=== PATIENT | male | born 1955 | race Caucasian/White ===

== ENCOUNTER 2024-09-28 07:05 | Day surgery (SDC) | payer OTHER ==
[2024-09-26 13:14] VITALS: BP 148/80; PULSE 63; RESP 18; TEMP 97.4
[2024-09-26 13:23] LABS: BASOPHILS # (AUTO) 0.02 K/uL (0.00-0.20); BASOPHILS % (AUTO) 0.4 % (0.0-5.0); EOSINOPHILS # (AUTO) 0.13 K/uL (0.00-0.70); EOSINOPHILS % (AUTO) 2.6 % (0.0-8.0); HEMATOCRIT 34.9 % (42-54); IMMATURE GRANULOCYTE ABSOLUTE 0.03 K/uL (0-1); LYMPHOCYTES # (AUTO) 1.1 K/uL (1.0-4.8); LYMPHOCYTES % (AUTO) 22.1 % (21.0-51.0); MEAN CORPUSCULAR HEMOGLOBIN 31.7 pg (27.0-33.0); MEAN CORPUSCULAR HGB CONC 34.4 g/dL (32.0-36.0); MEAN CORPUSCULAR VOLUME 92.3 fL (79-99); MONOCYTES # (AUTO) 0.5 K/uL (0.1-1.0); MONOCYTES % (AUTO) 10.4 % (3.0-13.0); NEUTROPHILS # (AUTO) 3.2 K/uL (1.8-7.7); NEUTROPHILS % (AUTO) 63.9 % (40.0-77.0); PLATELET COUNT (AUTO) 193 K/uL (130-400); RED BLOOD CELL COUNT(AUTO) 3.78 MIL/uL (4.50-6.20); RED CELL DISTRIBUTION WIDTH 12.4 % (11.0-15.5)
[2024-09-26 13:34] LABS: CREATININE 1.1 mg/dL (0.5-1.3); INR 0.97 (0.85-1.15); POTASSIUM 4.1 mmol/L (3.5-5.1); PROTHROMBIN TIME 10.9 SEC (9.6-11.6)
[2024-09-26 13:35] LABS: PARTIAL THROMBOPLASTIN TIME 32.9 SEC (26.3-35.5)
[2024-09-26 13:36] LABS: ADD UA MICROSCOPIC NO; APPEARANCE,URINE CLEAR (CLEAR); BILIRUBIN,URINE NEGATIVE (NEGATIVE); COLOR,URINE LIGHT-YELLOW (YELLOW); GLUCOSE, URINE (UA) NEGATIVE (NEGATIVE); KETONES,URINE NEGATIVE (NEGATIVE); LEUKOCYTE ESTERASE ,URINE NEGATIVE Leu/uL (NEGATIVE); NITRATE,URINE NEGATIVE (NEGATIVE); OCCULT BLOOD,URINE NEGATIVE (NEGATIVE); PH,URINE 5.5 (5.0-8.0); PROTEIN,URINE NEGATIVE (NEGATIVE); UROBILINOGEN,URINE 0.2 mg/dL (0.2-1.0)
--- NOTE | 2024-09-26 13:43 | EKG ---
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
[2024-09-26 13:52] LABS: B-TYPE NATRIURETIC PEPTIDE 33 pg/mL (0-100)
--- NOTE | 2024-09-26 14:35 | HMCIMG ---
CHEST 1VW REASON: PREOP COMPARISON: None. FINDINGS: Single view of the chest was obtained. Lungs are clear. Heart size is normal. There is no pulmonary vascular congestion. Mediastinum and bony thorax appear unremarkable. IMPRESSION: 1. Normal single view chest x-ray.
--- NOTE | 2024-09-27 11:51 | NUR ---
REPORT REPORTED BMP TO DR HERNANDEZ. OK TO PROCEED
[~2024-09-28] VITALS: Ht 177.8 cm; Wt 108.8 kg
[~2024-09-28 07:05] MED LIST: AMIO200T68 PO; APIX5TAB PO; ATOR40TA71 PO; NITR0.4T50 SL; OMEP40CA21 PO; TAMS-1 PO; VIBE75TA PO
[2024-09-28 07:20] VITALS: BP 152/80; PULSE 70; RESP 19; TEMP 97.3
[2024-09-28] MEDS ORDERED: 0.9%NACL 1000ML 1,000 ML IV SCH ×2 (08:00→11:00)
[2024-09-28] MEDS ORDERED: HEParin 10,000 UNIT/10ML (1,000 UNIT/ML) VIAL ONE (08:58)
[2024-09-28] MEDS ORDERED: IOHEXOL 350 MG/ML 100ML INFUS..BTL IV ONE (08:58)
[2024-09-28] MEDS ORDERED: niCARDIpine 25MG INJ IV ONE (08:58)
[2024-09-28] MEDS ORDERED: LIDOCAINE HCL 400MG/20ML VIAL ONE (08:58)
[2024-09-28] MEDS ORDERED: SODIUM BICARB 50MEQ 50ML VIAL 50 ML ONE (08:58)
[2024-09-28] MEDS ORDERED: HEParin-NS 1,000 UNIT/500 ML 1,000 ML IV ONE (08:58)
[2024-09-28] MEDS ORDERED: NITROGLYCERIN 50MG VIAL ONE (08:59)
[2024-09-28] MEDS ORDERED: IOHEXOL-350 50ML VIAL IV ONE (09:46)
[2024-09-28] MEDS ORDERED: MIDAZOLAM HCL 1 MG/ML 2ML VIAL ONE (09:54)
[2024-09-28] MEDS ORDERED: FENTanyl CITRate PF 50 MCG/1 ML 2ML VIAL ONE (09:54)
--- NOTE | 2024-09-28 11:01 | PRN ---
Diagnostic Coronary Angiogram From Radial Approach Indication: Technique: The patient was brought to the laborer salvage in a fasting state and sterile preparation was made in usual fashion. The patient had been explained risks and benefits of the procedure and accepted prior to this procedure. Patient was sedated with 1 mg Versed and 50 mcg fentanyl. Under local anesthes ia with 1% lidocaine the right radial artery was entered percutaneously and a 5/6 Guyanese Terumo radial sheath was advanced into the vessel. A cocktail of 5000 units aqueous heparin, 200 mcg Cardene and 200 mcg nitroglycerin was administered via radial arterial injection. A 6 Guyanese TIGG catheter was advanced to the aortic root over a guidewire and the left coronary was cannulated for selective left coronary arteriograms. An exchange was made for a 6 Guyanese 3.5 cm right Kayla which was used to engage the right coronary for right coronary arteriogram. We then exchanged for a pigtail using a guidewire and the left ventricle was cannulated. Left ventricular cineangiography was performed in GALLO projection and then a pullback recording was obtained. The c atheter was removed over a guidewire. At the conclusion of the procedure arterial hemostasis was obtained by use of a Vasc band with excellent hemostasis and no complications.. The patient was transferred from the laborer salvage in stable condition. Results: A. Hemodynamics: LVEDP was 18 before angiography in 22 after. LV systolic pressure was 165 with aortic root pressure 166/77, mean 112. B. Ventriculography: Left ventricular cineangiography demonstrates normal left ventricular size and geometry with symmetric wall motion and 75% ejection fraction. Mitral valve is competent. C. Coronary arteriography: This is a right-dominant system. Damping occurs whenever the right coronary is engaged, due to an 80% ostial stenosis. Just beyond the conus branch is an additional 90% stenosis, then an additional 90% stenosis superimposed on diffuse 50-70% plaque in the mid vertical portion of the vessel. The right coronary supplies a marginal descending that courses across the RV to the apical inferior groove, as well as a posterior descending that supplies the basal 70% of the inferior groove and a small posterior branch that in turn supplies the AV abhay artery. The left main is notable for 30% plaque in its distal portion but this is not obstructive. The left anterior descending is notable for a napkin ring lesion between the 1st and 2nd diagonals which appears to narrow the vessel by about 80%. The circumflex supplies two tiny obtuse marginals, then a medium-size 3rd obtuse marginal, then a large inferolateral branch that approaches the apex. This branches the largest branch in the circumflex system and it is notable for a radiolucent eccentric 90% ostial stenosis which appears to be an unstable plaque. Conclusions: Three-vessel coronary disease. Preserved ventricular function. Recommendation: Given the complexity of the right coronary anatomy and the presence of three-ve ssel disease, I think the patient would be best served by an internal mammary graft to LAD with vein grafts to the obtuse marginal and right coronary. TRENT HERNANDEZ MD Sep 28, 2024 11:01
[2024-09-28] MEDS ORDERED: METO-408 PO (11:07)
[2024-09-28] MEDS ORDERED: ASPI-1443 PO (11:08)
[2024-09-28 11:15] VITALS: BP 150/113; PULSE 57; RESP 14
[2024-09-28 11:30] VITALS: BP 157/102; PULSE 62; RESP 14
[2024-09-28 11:45] VITALS: BP 177/89; PULSE 62; RESP 14
[2024-09-28 12:00] VITALS: BP 169/84; PULSE 69; RESP 14
--- NOTE | 2024-09-28 12:55 | NUR ---
VASBAND REMOVED SITE ASYMPTOMATIC, DRESSED WITH STERILE GAUZE TEGADERM WRAPPED WITH COBAND
--- NOTE | 2024-09-28 13:59 | PN ---
No bleeding, no hematoma, no complications of coronary arteriography. Patient desires to return to Dr. 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 He has an appointment for October 02 at 8:00 a.m. which I arranged, and my office is sending a referral in the hospital is preparing a packet of records and coronary angiogram images for him to take. Vitals/Labs Vital Signs Date Time Temp Pulse Resp B/P (MAP) Pulse Ox O2 Delivery O2 Flow Rate FiO2 09/28/24 12:00 69 14 169/84 99 Room Air 21 09/28/24 07:20 97.3 Medications Current Medications Sodium Chloride 1,000 ml @ 0 mls/hr Q0M IV; Start 09/28/24 at 08:00; Stop at 07:59 Lidocaine HCl 20 ml STK-MED ONCE .ROUTE; Start 09/28/24 at 08:58; Stop 09/28/24 at 08:58; Status DC Sodium Bicarbonate 50 ml @ As Directed STK-MED ONCE .ROUTE; Start 09/28/24 at 08:58; Stop 09/28/24 at 08:58; Status DC Nicardipine HCl 25 mg STK-MED ONCE IV; Start 09/28/24 at 08:58; Stop 09/28/24 at 08:58; Status DC Iohexol 35,000 mg STK-MED ONCE IV; Start 09/28/24 at 08:58; Stop 09/28/24 at 08:59; Status DC Heparin Sodium (Porcine) 10,000 unit STK-MED ONCE .ROUTE; Start 09/28/24 at 08:58; Stop 09/28/24 at 08:59; Status DC Heparin Sodium/ Sodium Chloride 1,000 ml @ As Directed STK-MED ONCE IV; Start 09/28/24 at 08:58; Stop 09/28/24 at 08:59; Status DC Nitroglycerin 50 mg STK-MED ONCE .ROUTE; Start 09/28/24 at 08:59; Stop 09/28/24 at 08:59; Status DC Iohexol 50 ml STK-MED ONCE IV; Start 09/28/24 at 09:46; Stop 09/28/24 at 09:47; Status DC Fentanyl Citrate 100 mcg STK-MED ONCE .ROUTE; Start 09/28/24 at 09:54; Stop 09/28/24 at 09:54; Status DC Midazolam HCl 2 mg STK-MED ONCE .ROUTE; Start 09/28/24 at 09:54; Stop 09/28/24 at 09:54; Status DC Sodium Chloride 1,000 ml @ 150 mls/hr Q6H40M IV; Start 09/28/24 at 11:00; Stop 09/28/24 at 14:59 TRENT HERNANDEZ MD Sep 28, 2024 13:59
[2024-09-28 14:33] VITALS: BP 162/72; PULSE 71; RESP 18; TEMP 98
== END 2024-09-28 15:00 | disposition home or self-care (01) ==
LOC: DAH 07:05
PROVIDERS: ATTEND Internal Medicine Cardiovascular Disease
DX: I25.118 Atherosclerotic heart disease of native coronary artery with other forms of angina pectoris (principal); I25.83 Coronary atherosclerosis due to lipid rich plaque; R07.9 Chest pain, unspecified; R06.09 Other forms of dyspnea; E78.2 Mixed hyperlipidemia; I71.40 Abdominal aortic aneurysm, without rupture, unspecified; G47.33 Obstructive sleep apnea (adult) (pediatric); N40.0 Benign prostatic hyperplasia without lower urinary tract symptoms; J45.990 Exercise induced bronchospasm; K57.90 Diverticulosis of intestine, part unspecified, without perforation or abscess without bleeding; M17.9 Osteoarthritis of knee, unspecified; M16.9 Osteoarthritis of hip, unspecified; F10.90 Alcohol use, unspecified, uncomplicated; E66.9 Obesity, unspecified; E55.9 Vitamin D deficiency, unspecified; Z82.3 Family history of stroke; Z79.82 Long term (current) use of aspirin; Z82.49 Family history of ischemic heart disease and other diseases of the circulatory system; Z68.35 Body mass index [BMI] 35.0-35.9, adult; Z88.8 Allergy status to other drugs, medicaments and biological substances; Z79.899 Other long term (current) drug therapy; Z98.890 Other specified postprocedural states; Z90.49 Acquired absence of other specified parts of digestive tract; Z86.2 Personal history of diseases of the blood and blood-forming organs and certain disorders involving the immune mechanism
CPT/HCPCS: 80048; 83880; 85025; 85610; 85730; 81003; 36415; 71045; 93005; 93458; Q9965; C1769 ×2; C1894; A4649; J3010; J3490 ×4; J1644 ×2; J2250; Q9967 ×2; A4215; A4222; A4221; A4663; A4216; A4606; A4223 ×3; 96360; 96361; 99156; 99157

== ENCOUNTER → 2024-11-02 | Outpatient (CLI) | payer OTHER ==
[~2024-11-02] MED LIST changes: +ASPI-1443 PO; +METO-408 PO
--- NOTE | 2024-11-06 21:32 | HMCSR ---
APPROVED REPORT EXAM: Two-dimensional and M-mode echocardiogram with Doppler and color Doppler. INDICATION ICD: Other forms of dyspnea R06.09 2D Dimensions RVDd4.3 cmLVEF(%)56.9 (>50%)LVED Vol(simp.)116.4 mL IVSd0.9 (0.7-1.1cm)FS(%)30 %LVES Vol(simp.)56.0 mL LVDd5.2 (3.8-5.6cm)LA (2D)4.6 (1.6-4.0cm)LVEF(%, simp.)52 % PWd1.3 (0.7-1.1cm)Ao Root(2D)3.7 (2.0-3.7cm)LA ESV INDEX (BP)28.24 mL/m2 LVDs3.6 (2.5-4.0cm)LVOT diam2.5 (1.8-2.4cm) IVC diam1.5 cm M-Mode Dimensions EPSS0.6 cm LA (MM)4.7 (1.6-4.0cm) Ao Root(MM)3.7 (2.0-3.7cm) Aortic Valve AoV Vmax1.5 m/Parris Peak GR9.5 mmHgLVOT Vmax1.0 m/s AoV VTI0.3 mAo Mean GR5.4 mmHgLVOT VTI0.21 m ANUM (VMAX)3.1 cm2AVA (VTI) 3.1 cm2 Mitral Valve MV E Vmax61.2 cm/sDECEL Kjad391 ms MV A Vmax81.8 cm/sP 1/2 T90 ms E/A ratio0.7MVA (PHT)2.4 cm2 TDI E/E' Ffubpo75.2E/E' Lateral6.1 Medial E' Peak V6.00 cm/sLateral E' Peak V10.00 cm/s Left Ventricle The left ventricle is normal size. There is normal LV segmental wall motion. There is normal left steve tricular wall thickness. LVEF is 50-55%. The left ventricular diastolic function is normal. Right Ventricle The right ventricle is normal size. The right ventricular systolic function is normal. Atria The left atrium size is normal. The right atrium size is normal. Aortic Valve The aortic valve is normal in structure. No aortic regurgitation is present. There is no aortic valvu lar stenosis. Mitral Valve The mitral valve is normal in structure. There is no evidence of significant mitral regurgitation. Th ere is no mitral valve stenosis. Tricuspid Valve The tricuspid valve is normal in structure. There is no tricuspid valve regurgitation noted. Pulmonic Valve The pulmonary valve is normal in structure. There is no pulmonic valvular regurgitation. Great Vessels The aortic root is normal in size. The IVC is normal in size and collapses >50% with inspiration. Pericardium There is no pericardial effusion. Conclusion LVEF is 50-55%. The left ventricular diastolic function is normal.
== END | disposition home or self-care (01) ==
LOC: RAH 13:53
PROVIDERS: ATTEND Internal Medicine Cardiovascular Disease
DX: R06.09 Other forms of dyspnea (principal); I95.9 Hypotension, unspecified
CPT/HCPCS: 93306

== ENCOUNTER 2025-03-23 17:24 | Emergency (ER) | payer OTHER ==
[~2025-03-23] VITALS: Ht 175.3 cm; Wt 104.3 kg
[~2025-03-23 17:24] MED LIST changes: -AMIO200T68 PO; +AMIO200T73 PO; -APIX5TAB PO; +ATOR-2 PO; -ATOR40TA71 PO; +CLOP75TA32 PO; +DABI150C PO; +FAMO40TA7 PO; +FERR325T29 PO; -METO-408 PO; -NITR0.4T50 SL; -OMEP40CA21 PO; -TAMS-1 PO; +TAMS-55 PO
--- NOTE | 2025-03-23 17:42 | ERN ---
ED Note History of Present Illness Stated Complaint: CP Chief Complaint: Chest Pain Time Seen by MD: 17:33 Dictation: PATIENT IS A 70-YEAR-OLD MALE COMING IN TODAY WITH COMPLAINTS OF GENERALIZED BODY WEAKNESS NOT FEELING GOOD AND HAVING A LOW-GRADE TEMP. HE ALSO STATES HE HAS A FRONTAL HEADACHE AND HAS CHANGES IN URINATION. STATES HE IS CONCERNED BECAUSE HE HAD A TRIPLE BYPASS IN [facility] [place] THIS YEAR. RECENTLY SAW DR. HERNANDEZ, HAD A HEART CATHETERIZATION DONE AND WAS TOLD THAT TWO OF THE BYPASSES ALREADY SIGNIFICANTLY STENOSED. HE ALSO STATES HE HAS A URETEROSCOPY DONE YESTERDAY BY DR. ROONEY IN [facility]. NO NAUSEA VOMITING. NO CHEST PAIN AT THIS TIME Allergies: Coded Allergies: ciprofloxacin (Unverified Allergy, Unknown, 09/27/24) Home Meds Active Scripts Dabigatran Etexilate Mesylate (Pradaxa) 150 Mg Capsule, 1 CAP PO BID for 90 Days, #180 CAP 0 Refills Prov:TRENT HERNANDEZ MD 01/25/25 Famotidine (Famotidine) 40 Mg Tablet, 40 MG PO DAILY, #90 TAB Prov:TRENT HERNANDEZ MD 01/25/25 Aspirin (Aspirin EC) 81 Mg Tablet., 81 MG PO AM, #90 TAB Prov:TRENT HERNANDEZ MD 09/28/24 Reported Medications Atorvastatin Calcium (Atorvastatin Calcium) 80 Mg Tablet, 1 TAB PO HS 01/23/25 Clopidogrel Bisulfate (Clopidogrel) 75 Mg Tablet, 1 TAB PO DAILY 01/23/25 Ferrous Sulfate (Ferosul) 325 Mg (65 Mg Iron) Tablet, 1 TAB PO DAILY for anemia 01/23/25 Vibegron (Gemtesa) 75 Mg Tablet, 75 MG PO HS, TAB 09/26/24 Tamsulosin HCl (Flomax) 0.4 Mg Cap.er.24h, 0.4 MG PO BID, CAPSULE. 09/26/24 Amiodarone HCl (Amiodarone HCl) 200 Mg Tablet, 200 MG PO DAILY, TAB 09/26/24 Past Medical History Past Medical History: CAD, Hypertension Surgical History: CABG RN Note Reviewed/Agreed w/PFSH: Yes Review of System Dictation CONSTITUTIONAL: NEGATIVE EXCEPT FOR HPI FEVER CHILLS HEAD/FACE: NEGATIVE EXCEPT FOR HPI EENT: NEGATIVE EXCEPT FOR HPI RESPIRATORY: NEGATIVE EXCEPT FOR HPI SOB GASTROINTESTINAL/ABDOMINAL: NEGATIVE EXCEPT FOR HPI GENITOURINARY: NEGATIVE EXCEPT FOR HPI MUSCULOSKELETAL: NEGATIVE EXCEPT FOR HPI INTEGUMENTARY: NEGATIVE EXCEPT FOR HPI NEUROLOGICAL/PSYCH: NEGATIVE EXCEPT FOR HPI FRONTAL HEADACHE HEMATOLOGIC/LYMPHATIC: NEGATIVE EXCEPT FOR HPI ALL SYSTEMS NEGATIVE, EXCEPT NOTED ABOVE. 13 POINT REVIEW OF SYSTEMS ASSESSED AND ALL NEGATIVE EXCEPT FOR ABOVE. Initial Vital Sign VS Vital Signs Date Time Temp Pulse Resp B/P (MAP) Pulse Ox O2 Delivery O2 Flow Rate FiO2 03/23/25 17:31 101.1 77 20 193/88 98 Room Air 0 03/23/25 17:37 21 Physical Exam Dictation VITAL SIGNS REVIEWED GENERAL APPEARANCE: ALERT, ORIENTED X 3, MILD ACUTE DISTRESS, WELL DEVELOPED, NOURISHED. HEAD AND FACE: NON-TRAUMATIC. EYES: PERRL, PINK CONJUNCTIVAS, EYELID NO TRAUMA, ANTERIOR CHAMBER WITH ARCUS SENILIS. EARS: PINNAS INTACT AND NO SIGNS OF TRAUMA OR ERYTHEMA EAR CANALS CLEAR AND NO DISCHARGE TM NO ERYTHEMA NOSE: NO DISCHARGE, NO BLEEDING. OROPHARYNX: MOUTH NORMAL, TONGUE PINK, PHARYNX CLEAR,NO ERYTHEMA, TONSILS NO EXUDATES, NO ABSCESSES NOTED, MUCOUS MEMBRANE MOIST NECK: SUPPLE, NON-TENDER, NO THYROMEGALY, NO MASSES, NO JVD, NO BRUITS BREAST:DEFERRED CHEST:NO TENDERNESS, NO CREPITUS, NO PARADOXICAL MOVEMENT, NO RETRACTIONS LUNGS:CLEAR, WELL-VENTILATED, SYMMETRIC, NO RALES, NO WHEEZING, NO RHONCHI, NO STRIDOR, GOOD BREATH SOUNDS BILATERALLY HEART: REGULAR RATE, REGULAR RHYTHM, NO MURMUR, NO GALLOPS VASCULAR: NO PERIPHERAL EDEMA, ABDOMEN: SOFT, POSITIVE BOWEL SOUNDS, NONDISTENDED, NO GUARDING, NONTENDER, NO REBOUND, NO MASSES NO HEPATOMEGALY, NO SPLENOMEGALY, NO ZAVALA'S SIGN, NO HERNIAS. RECTAL: DEFERRED GENITAL: DEFERRED NEUROLOGICAL: NORMAL SPEECH, MOTOR FUNCTION INTACT, SENSORY FUNCTION INTACT MUSCULOSKELETAL: NECK NONTENDER, FULL RANGE OF MOTION, BACK NONTENDER, FULL RANGE OF MOTION, EXTREMITIES: NONTENDER, FULL RANGE OF MOTION SKIN: COLOR PINK, DRY, NO TURGOR, NO RASH, NO LACERATIONS, NO ABRASIONS, NO CONTUSIONS. LYMPHATIC: DEFERRED Results (Laboratory/Radiology) Laboratory/Radiology Laboratory Tests Test 03/23/25 17:43 03/23/25 17:46 03/23/25 18:34 Urine Color LIGHT-YELLOW (YELLOW) Urine Appearance CLOUDY (CLEAR) H Urine pH 7.0 (5.0-8.0) Urine Specific [place] 1.015 (1.001-1.031) Urine Protein NEGATIVE mg/dL (NEGATIVE) Urine Glucose (UA) NEGATIVE mg/dL (NEGATIVE) Urine Ketones NEGATIVE mg/dL (NEGATIVE) Urine Occult Blood SMALL (NEGATIVE) H Urine Nitrate 2+ (NEGATIVE) H Urine Bilirubin NEGATIVE mg/dL (NEGATIVE) Urine Urobilinogen 0.2 mg/dL (0.2-1.0) Urine Leukocyte Esterase 500 Corey/uL (NEGATIVE) H Urine RBC 11-25 /HPF (0-1) H Urine WBC 51-100 /HPF (0-1) H Urine WBC Clumps (Auto) FEW /HPF (0-1) Urine Squamous Epithelial Cells RARE /HPF (0-2) Urine Bacteria RARE /HPF (None Seen) White Blood Count 11.1 K/uL (4.8-10.8) H Red Blood Count 4.09 MIL/uL (4.50-6.20) L Hemoglobin 13.1 g/dL (14.0-18.0) L Hematocrit 38.2 % (42-54) L Mean Corpuscular Volume 93.4 fL (79-99) Mean Corpuscular Hemoglobin 32.0 pg (27.0-33.0) Mean Corpuscular Hemoglobin Concent 34.3 g/dL (32.0-36.0) Red Cell Distribution Width 13.5 % (11.0-15.5) Platelet Count 223 K/uL (130-400) Mean Platelet Volume 9.2 fL (7.5-10.5) Immature Granulocyte % (Auto) 0.5 % (0-1) Neutrophils (%) (Auto) 90.4 % (40.0-77.0) H Lymphocytes (%) (Auto) 3.3 % (21.0-51.0) L Monocytes (%) (Auto) 5.0 % (3.0-13.0) Eosinophils (%) (Auto) 0.7 % (0.0-8.0) Basophils (%) (Auto) 0.1 % (0.0-5.0) Neutrophils # (Auto) 10.0 K/uL (1.8-7.7) H Lymphocytes # (Auto) 0.4 K/uL (1.0-4.8) L Monocytes # (Auto) 0.6 K/uL (0.1-1.0) Eosinophils # (Auto) 0.08 K/uL (0.00-0.70) Basophils # (Auto) 0.01 K/uL (0.00-0.20) Absolute Immature Granulocyte (auto 0.05 K/uL (0-1) Nucleated Red Blood Cells 0.0 % (0.0-0.19) White Cell Morphology Comment See comments Sodium Level 132 mmol/L (136-145) L Potassium Level 4.2 mmol/L (3.5-5.1) Chloride Level 97 mmol/L (101-111) L Carbon Dioxide Level 30 mmol/L (21-32) Blood Urea Nitrogen 16 mg/dL (7-18) Creatinine 1.2 mg/dL (0.5-1.3) Glomerular Filtration Rate Calc 65 mL/min (>90) Random Glucose 99 mg/dL (70-105) Total Calcium 9.2 mg/dL (8.5-10.1) Troponin I High Sensitivity 41 ng/L (4-75) B-Type Natriuretic Peptide 83 pg/mL (0-100) Lactic Acid Level 1.9 mmol/L (0.8-2.5) Labs Reviewed?: Yes EKG Comment: EKG SINUS RHYTHM/HEART RATE 86/AXIS NORMAL/NONSPECIFIC CHANGES LEADS TWO AND THREE ED Course ED Course Orders Procedure Category Date Status Time Covid19 (Sars Antigen LAB 03/23/25 In Process Rapid) 17:34 Influenza Type A & B, LAB 03/23/25 In Process Rapid 17:34 Rapid (Group A Strep) LAB 03/23/25 In Process 17:34 Acetaminophen 500mg PHA 03/23/25 In Process Tab (Tylenol 500mg T 18:00 Cbc With Differential LAB 03/23/25 Complete 17:34 Troponin I High LAB 03/23/25 Complete Sensitivity 17:34 Urinalysis Profile LAB 03/23/25 Complete 17:34 12 Lead Ekg Tracing- EKG 03/23/25 Logged Technical 17:34 0.9%Nacl 1000ml (Ns PHA 03/23/25 In Process 1000ml) 18:00 Chest 1vw RAD 03/23/25 Resulted 17:34 Basic Metabolic Panel LAB 03/23/25 Complete 17:34 B-Type Natriuretic LAB 03/23/25 Complete Peptide 17:39 Culture Urine PETER 03/23/25 In Process 18:10 Lactic Acid LAB 03/23/25 Complete 18:27 Blood Cult PETER 03/23/25 In Process 18:27 Ceftriaxone 2gm Vial PHA 03/23/25 In Process (Rocephin 2gm Inj) 18:27 Ceftriaxone 2gm Vial PHA 03/23/25 In Process (Rocephin 2gm Inj) 19:11 Phenazopyridine Hcl PHA 03/23/25 In Process 200 Mg Tab (Pyridium 19:30 Current Medications Medications (Trade) Dose Ordered Sig/Iván Route PRN Reason Start Time Stop Time Status Last Admin Dose Admin Acetaminophen (TYLenol 500MG TAB) 1,000 mg ONCE PO 03/23/25 18:00 03/23/25 22:00 03/23/25 18:30 Ceftriaxone Sodium (Rocephin 2gm Inj) 2 gm ONCE IVPB 03/23/25 18:27 03/23/25 22:30 Ceftriaxone Sodium (Rocephin 2gm Inj) 2 gm ONCE IVPB 03/23/25 19:11 03/23/25 23:59 Phenazopyridine HCl (PYRIdium HCL 200 MG TAB) 200 mg ONCE PO 03/23/25 19:30 03/23/25 23:59 Sodium Chloride 1,000 ml @ 0 mls/hr ONCE IV 03/23/25 18:00 03/24/25 17:59 03/23/25 18:30 Vital Signs Date Time Temp Pulse Resp B/P (MAP) Pulse Ox O2 Delivery O2 Flow Rate FiO2 03/23/25 18:35 102.4 78 18 169/79 Room Air* 0 21 03/23/25 18:30 102.4 03/23/25 17:37 100.9 77 20 193/88 98 Room Air* 0 21 03/23/25 17:31 101.1 77 20 193/88 98 Room Air 0 1954/spoke with patient at length regarding clinical findings. He does not want to be admitted to the hospital states he wants to be treated for acute cystitis with hematuria Agreed he would return if he would come back however he would just seen his urologist yesterday. I we will discharge patient home after Rocephin 2 g with Augmentin and Pyridium Increase his fluids he and his agreed at bedside HEART Score Response (Comments) Value EKG: Repolarization changes 1 Age: > 65yrs (+2) 2 Risk Factors: 3+ risk factors (+2) 2 Initial Troponin: Normal limit (0) 0 Total 5 Medical Decision Making MDM MDM: Differential diagnosis: ACS/AMI/electrolyte imbalance/dehydration/UTI/SARs COVID/pneumonia/bronchitis Rationale: Tests considered and ordered secondary to shared decision making include: EKG/labs/radiology Previous outside records reviewed: Old ER visits. Risk of complication and/or morbidity or mortality of patient management: None Medications-Per medication reconciliation Need for hospitalization: Patient does not meet criteria for hospitalization. Patient refused admission at this time wishes to be treated at home with the Augmentin and Pyridium after Rocephin Need for emergency major/minor surgery: No There are no social concerns with this patient. Prescription drug management Augmentin/Pyridium Prescriptions will include symptomatic care Patient's prior external medical records from other ER visits were reviewed by me as indicated. Prior testing and results from previous visits were reviewed. Prior tests were taken into account with medical decision making and resource utilization, independent historian/historians were used to obtain complete m edical history. I independently interpreted the test that were performed, results were reviewed by me and considered findings on radiology if ordered. Medical management and examination interpretation discussions were had by me with other qualified healthcare professionals as indicated for the patient's care. DX & DISP Disposition: Discharge Departure Impression: Primary Impression: Acute cystitis with hematuria Additional Impressions: Fever, Hyponatremia, Dehydration Condition: Stable Scripts Phenazopyridine HCl (Pyridium) 200 Mg Tablet 200 MG PO TID for painful urination, #10 TAB 0 Refills Prov: RENETTA COLEMAN COMPOSITE BOAT BUILDER 03/23/25 Amoxicillin/Potassium Clav (Amox Tr-K Clv 875-125 mg Tab) 875 Mg-125 Mg Tablet 1 EACH PO BID for 7 Days, #14 TAB 0 Refills Prov: RENETTA COLEMAN [employer]POS[employer] BOAT BUILDER 03/23/25 Additional Instructions: Follow-up with primary care provider in 1 to 2 days. Take medications as directed here in the emergency room. Okay to continue home medications unless otherwise discussed during your visit in the emergency room today. Return to your nearest emergency room if symptoms worsen or if there is no improvement. Call 911 if you need immediate assistance. Take Tylenol or Motrin over-the- counter as needed and if no contraindications are present. Increase oral hydration. A wound culture or urine culture was ordered here in the emergency room department please follow-up with primary care provider and advise them to get repeat ports from our facility. If you had any [place] wrap/splints that were applied here, please do not remove them until you see your primary care or specialty. Take Augmentin as directed until gone., take Pyridium 3 times a day for the next three days, remember it will turn your urine orange red. Increase your water intake. Take Tylenol or Motrin [id number] as needed for fever pain and see your primary care doctor for follow up next week Referrals: SUPA ALBERTS MD (PCP) Time of Disposition: 19:59 I have reviewed the case, and I agree with, Diagnosis and Plan RENETTA COLEMAN NP Mar 23, 2025 17:42
[2025-03-23 18:07] LABS: IMMATURE GRANULOCYTE ABSOLUTE 0.05 K/uL (0-1); NUCLEATED RED BLOOD CELLS 0.0 % (0.0-0.19); PLATELET COUNT (AUTO) 223 K/uL (130-400); RED BLOOD CELL COUNT(AUTO) 4.09 MIL/uL (4.50-6.20); RED CELL DISTRIBUTION WIDTH 13.5 % (11.0-15.5); WHITE BLOOD COUNT (AUTO) 11.1 K/uL (4.8-10.8)
[2025-03-23 18:08] LABS: APPEARANCE,URINE CLOUDY (CLEAR); GLUCOSE, URINE (UA) NEGATIVE (NEGATIVE); LEUKOCYTE ESTERASE ,URINE 500 Leu/uL (NEGATIVE); NITRATE,URINE 2+ (NEGATIVE); OCCULT BLOOD,URINE SMALL (NEGATIVE)
[2025-03-23 18:09] LABS: ADD UA MICROSCOPIC YES
[2025-03-23 18:13] LABS: SQUAMOUS EPITHELIAL CELL,UR RARE /HPF (0-2); WBC CLUMP FEW /HPF (0-1)
[2025-03-23 18:16] LABS: CREATININE 1.2 mg/dL (0.5-1.3); GLOMERULAR FILTR. RATE CALC 65.0 mL/min (>90); GLUCOSE,RANDOM 99.0 mg/dL (70-105); SODIUM SERUM 132.0 mmol/L (136-145); UREA NITROGEN, BLOOD 16.0 mg/dL (7-18)
--- NOTE | 2025-03-23 18:24 | HMCIMG ---
EXAM: CR Chest, 1 View. CLINICAL HISTORY: SOB/COUGH COMPARISON: Radiograph dated January 23, 2025 FINDINGS: LUNGS: There is no mass, infiltrate, or acute pulmonary abnormality. PLEURAL SPACES: No pleural effusion or pneumothorax. MEDIASTINUM: Prior sternotomy. Stable cardiomegaly. Pulmonary vessels and interstitial markings are within normal limits. BONES: No aggressive appearing osseous lesion seen. IMPRESSION: 1. No acute cardiopulmonary findings. /[place]
[2025-03-23] MEDS: 0.9%NACL 1000ML 1,000 ML IV SCH (18:30)
[2025-03-23] MEDS: PHENAZOpyridine HCL 200 MG TAB 200 MG TABLET PO SCH (19:58)
[2025-03-23] MEDS ORDERED: PHEN-776 PO (19:59)
[2025-03-23] MEDS ORDERED: AMOX1TAB16 PO (19:59)
[2025-03-23 20:01] LABS: RAPID GROUP A STREP negative (NEGATIVE)
[2025-03-23 20:11] LABS: INFLUENZA TYPE A Negative For Type A (NEGATIVE); INFLUENZA TYPE B Negative For Type B (NEGATIVE)
[2025-03-23 20:12] LABS: COVID19 (SARS ANTIGEN RAPID) PRESUMPTIVE NEGATIVE (NEGATIVE)
[2025-03-23 20:47] VITALS: BP 125/64; PULSE 70; RESP 16; TEMP 100.4; O2SAT 97
[2025-03-23 20:50] VITALS: TEMP 100.4
--- NOTE | 2025-03-24 08:21 | EKG ---
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
== END 2025-03-23 21:00 | disposition home or self-care (01) ==
LOC: EDH 17:24
DX: N30.01 Acute cystitis with hematuria (principal); R50.9 Fever, unspecified; E87.1 Hypo-osmolality and hyponatremia; E86.0 Dehydration; I25.10 Atherosclerotic heart disease of native coronary artery without angina pectoris; I10 Essential (primary) hypertension; Z20.822 Contact with and (suspected) exposure to COVID-19; Z79.01 Long term (current) use of anticoagulants; Z79.02 Long term (current) use of antithrombotics/antiplatelets; Z88.1 Allergy status to other antibiotic agents; Z95.1 Presence of aortocoronary bypass graft
CPT/HCPCS: 99284; 96365; 71045; 96361; 87426; 84484; 80048; 83880; 85025; 87040 ×2; 87086 ×2; 87186; 87880; 87804 ×2; 83605; 81001; 36415; 93005; J7030; J0696